=== PATIENT | female | born 1965 | race Two or more races ===

== ENCOUNTER → 2024-08-10 | Outpatient (CLI) | payer MEDICAID, SELFPAY ==
--- NOTE | 2024-08-10 09:00 | XR_ITS ---
Examination: Pelvic ultrasound, transabdominal, complete Technique: Transabdominal ultrasound of the pelvis performed using grayscale imaging Date and time of exam: August 10, 2024 0908 hours INDICATIONS: Pelvic pain beginning one month ago FINDINGS: Uterus 7.6 cm endometrial stripe 0.8 cm No uterine mass Right ovary 3.0 cm arterial flow. Left ovary 1.9 cm arterial flow Mild fluid in the cul-de-sac IMPRESSION: No uterine or adnexal mass
--- NOTE | 2024-08-10 09:00 | XR_ITS ---
Examination: Abdomen sonogram, complete Date and time of exam: August 10, 2024 0857 hours INDICATIONS: Abdominal pain beginning one month ago. Technique: Multiple real-time grayscale transabdominal sonographic images of the abdomen have been obtained. Findings: Normal gallbladder. Normal common bile duct 0.2 cm Pancreatic head 2.2 cm Aorta not enlarged Liver 18 cm fatty infiltration Normal hepatopedal portal venous flow Patent IVC Right kidney 10.9 cm cortex 1.3 cm Left kidney 10.8 cm cortex 1.7 cm Spleen 8.5 cm IMPRESSION: Normal gallbladder Moderate hepatomegaly fatty infiltration
== END | disposition home or self-care (01) ==
LOC: CDIM 08:44
PROVIDERS: Referring Provider Physician Assistant; Visit Provider Physician Assistant
DX: K76.0 Fatty (change of) liver, not elsewhere classified (principal); R10.2 Pelvic and perineal pain
CPT/HCPCS: 76700; 76856